=== PATIENT | male | born 1960 | race African-American/Black ===

== ENCOUNTER 2018-06-14 09:10 | Emergency (ER) | payer OTHER ==
[~2018-06-14] VITALS: Ht 182.9 cm; Wt 72.6 kg
[2018-06-14] MEDS ORDERED: MULT-213 PO (09:40)
[2018-06-14] MEDS ORDERED: MAGN400O6 PO (09:40)
[2018-06-14] MEDS ORDERED: ACET-2605 PO ×2 (09:40)
[2018-06-14] MEDS ORDERED: ACET-2154 PO (09:40)
[2018-06-14] MEDS ORDERED: THIA100T13 PO (09:40)
[2018-06-14] MEDS ORDERED: FOLI1TAB16 PO (09:40)
[2018-06-14] MEDS ORDERED: DOCU-141 PO (09:40)
[2018-06-14] MEDS ORDERED: ASCO500C18 PO (09:40)
[2018-06-14] MEDS ORDERED: FERR325T6 PO (09:40)
[2018-06-14] MEDS ORDERED: ZINC220C8 PO (09:40)
[2018-06-14] MEDS ORDERED: BISA10SU12 RC (09:40)
[2018-06-14] MEDS ORDERED: CRAN3875 PO (09:40)
[2018-06-14] MEDS ORDERED: AMLO5TAB7 PO (09:40)
[2018-06-14] MEDS ORDERED: NA P133E RC (09:40)
[2018-06-14] MEDS ORDERED: CRAN425C6 PO (09:40)
[2018-06-14 09:53] LABS: EOSINOPHILS # (AUTO) 0.1 K/uL (0.0-0.7); HEMATOCRIT 41.9 % (36.7-47.1); HEMOGLOBIN 13.7 g/dL (12.5-16.3); LYMPHOCYTES # (AUTO) 1.6 K/uL (20.0-40.0); LYMPHOCYTES % (AUTO) 45.8 % (20.5-51.5); MEAN CORPUSCULAR HEMOGLOBIN 28.7 uug (23.8-33.4); MEAN CORPUSCULAR HGB CONC 33 g/dL (32.5-36.3); MEAN CORPUSCULAR VOLUME 87.9 fL (73.0-96.2); MONOCYTES # (AUTO) 0.5 K/uL (2.0-10.0); MONOCYTES % (AUTO) 15.3 % (0.0-11.0); NEUTROPHILS # (AUTO) 1.2 K/uL (1.8-8.9); NEUTROPHILS % (AUTO) 35.9 % (38.5-71.5); PLATELET COUNT (AUTO) 140 K/uL (152-348); RED BLOOD CELL COUNT(AUTO) 4.77 MIL/uL (4.06-5.63); WHITE BLOOD COUNT (AUTO) 3.4 K/uL (3.6-10.2)
[2018-06-14] MEDS ORDERED: LORAZEPAM 1 MG TABLET ONE (09:57)
[2018-06-14] MEDS ORDERED: OLANZAPINE 5 MG TABLET ONE (09:57)
[2018-06-14 09:59] LABS: CARBON DIOXIDE 28 mmol/L (21-32); CHLORIDE 102 mmol/L (98-107); CREATININE 0.8 mg/dL (0.6-1.3); GLUCOSE 82 mg/dL (74-106); POTASSIUM 4.1 mmol/L (3.5-5.1); UREA NITROGEN, BLOOD 18 mg/dL (7-18)
[2018-06-14] MEDS ORDERED: LORAZEPAM 0.5 MG TABLET PO ONE (10:00)
[2018-06-14] MEDS ORDERED: OLANZAPINE 5 MG TABLET PO ONE (10:00)
--- NOTE | 2018-06-14 10:03 | NUR ---
PATEINT WAS SEEN BY DR KHAN. PATIENT IS AWAKE AND ALERT. HIS SPEECH IS UNCLEAR, HIS TONGUE IS CROOKED. I GAVE HIM FOOD BECAUSE HE ASKED FOR IT. HE ATE ALL OF IT. HE IS SOMEWHAT COMBATIVE YELLING AT STAFF BUT NOT PHYSICALLY COMBATIVE. HE RECEIVED MEDICATION ORDERED.
[2018-06-14 10:05] LABS: ACETAMINOPHEN 4.3 ug/mL (10-30); ALANINE AMINOTRANSFERASE 27 U/L (16-63); ALKALINE PHOSPHATASE 65 U/L (50-136); ASPARTATE AMINOTRANSFERASE 18 U/L (15-37); BILIRUBIN,DIRECT 0.1 mg/dL (0.0-0.2); BILIRUBIN,TOTAL 0.2 mg/dL (0.2-1.0); TOTAL PROTEIN, SERUM 7.8 g/dL (6.4-8.2)
[2018-06-14 10:06] LABS: ETHANOL < 3 MG/DL (0-0)
[2018-06-14 10:12] LABS: EOSINOPHILS % (MANUAL) 1 % (0-8); MONOCYTES % (MANUAL) 15 % (2-10)
[2018-06-14 10:13] LABS: LYMPHOCYTES % (MANUAL) 46 % (20-40); NEUTROPHILS % (MANUAL) 38 % (42-75)
--- NOTE | 2018-06-14 10:55 | NUR ---
PATIENT IS STILL COMBATIVE AND YELLING AT STAFF. HE TOOK OFF ALL HIS CLOTHES AND TOOK OFF ALL THE SHEETS. SECURITY WAS CALLED TO BEDSIDE. SECURITY TO STAY AT BEDSIDE FOR SAFETY AND OBSERVATION. HIS GOWN AND BLANKETS ARE BACK ON..
--- NOTE | 2018-06-14 11:35 | NUR ---
PATIENT STILL COMBATIVE AND USING PROFANITY TO TALK TO STAFF. HE IS YELLING AND SCREAMING. SECURITY AT BEDSIDE. PATIENT WOULD NOT ALLOW ME TO ASSESS HIS SKIN. HE TRIED TO SWING AT ME.
--- NOTE | 2018-06-14 12:01 | NUR ---
PATIENT IS MORE CALM NOW. SECURITY STILL AT BEDSIDE.
--- NOTE | 2018-06-14 12:19 | NUR ---
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
--- NOTE | 2018-06-14 13:02 | NUR ---
I CALLED SARAI CURTIS AT [facility] AND GAVE HIM REPORT ABOUT THIS PATIENT AND INFORMED HIM THAT PATIENT WILL BE RETURNING BACK THERE SOON PER DR KHAN, C[employer] WANG AND ANAIS URBANO.
--- NOTE | 2018-06-14 13:24 | NUR ---
AWAITING CT RESULTS. PATIENT IS SLEEPY BUT AROUSES EASY
--- NOTE | 2018-06-14 14:07 | NUR ---
JASSI STAFF HERE TO TAKE PATIENT BACK TO FACILITY. PATIENT IS NOT COMBATIVE AT THIS TIME. SARAI FROM [facility]. [facility] AWARE OF PENDING TRANSFER TO [facility]
== END 2018-06-14 14:22 | disposition home or self-care (01) ==
LOC: ER 09:10
DX: Z04.6 Encounter for general psychiatric examination, requested by authority (principal); R41.82 Altered mental status, unspecified
CPT/HCPCS: 36415; 70450; 80048; 80076; 85025; 93005; 99284; G0480 ×2; G0481; A4663